=== PATIENT | male | born 1975 ===

== ENCOUNTER 2017-02-26 10:53 | Emergency (ER) | payer OTHER ==
[~2017-02-26] VITALS: Ht 190.5 cm; Wt 95.3 kg
[~2017-02-26 10:53] MED LIST: KETO10TA2 PO; MUPIROCIN15 GM TP; SMZ-TMP DS 800-1 TAB PO
== END 2017-02-26 12:51 | disposition home or self-care (01) ==
LOC: ER 10:53
DX: S01.82XA Laceration with foreign body of other part of head, initial encounter (principal); W45.8XXA Other foreign body or object entering through skin, initial encounter; Y93.89 Activity, other specified; Y92.69 Other specified industrial and construction area as the place of occurrence of the external cause; Y99.8 Other external cause status